=== PATIENT | female | born 1960 | race Caucasian/White ===

== ENCOUNTER 2018-04-26 19:55 | Inpatient (IN) | payer MEDICARE ==
[~2018-04-26] VITALS: Ht 157.5 cm; Wt 41.0 kg
[~2018-04-26 19:55] MED LIST: ALBU4 INH; ALBU90OI; ALBU90OI INH; ASPI81CH PO; AZIT500 PO; CYCL10 PO; FLUSAL2505 INH; GUAI600T33 PO; HYDACE5 PO; HYDCHL25 PO; LEVSOD150 PO; LISI20 PO; OXYC10ER; PRED10 PO; PRED20 PO; RANI150 PO; TRAM50 PO
[2018-04-26 20:30] LABS: BASOPHILS ABSOLUTE AUTO 0.04 K/mm3 (0.00-0.23); BASOPHILS PERCENT AUTO 0 % (0-2); EOSINOPHILS ABSOLUTE AUTO 0.01 K/mm3 (0.00-0.68); EOSINOPHILS PERCENT AUTO 0 % (0-6); Hematocrit 47.6 % (33.0-51.0); Hemoglobin 15.6 g/dL (11.5-16.0); IMMATURE GRAN ABSOLUTE AUTO 0.02 K/mm3 (0.00-0.10); IMMATURE GRAN PERCENT AUTO 0 % (0-1); LYMPHOCYTES ABSOLUTE AUTO 1.06 K/mm3 (0.84-5.20); LYMPHOCYTES PERCENT AUTO 12 % (21-46); MONOCYTES ABSOLUTE AUTO 0.97 K/mm3 (0.16-1.47); MONOCYTES PERCENT AUTO 11 % (4-13); Mean Corpuscular HGB 30.7 pg (26.0-34.0); Mean Corpuscular HGB Conc 32.8 g/dL (31.5-36.5); Mean Corpuscular Volume 94 fL (80-100); Mean Platelet Volume 10.2 fL (9.1-12.4); NEUTROPHILS ABSOLUTE AUTO 6.98 K/mm3 (1.96-9.15); NEUTROPHILS PERCENT AUTO 77 % (41-73); Platelet Count 228 K/mm3 (150-400); RDW Coefficient Variation 12.1 % (11.7-14.2); RDW Standard Deviation 42.3 fL (35.1-46.3); Red Blood Cell Count 5.08 M/mm3 (3.80-5.20); White Blood Cell Count 9.08 K/mm3 (4.00-11.30)
[2018-04-26 20:41] LABS: Alanine Aminotransfer (ALT/SGP 25 U/L (12-78); Albumin/Globulin Ratio 1.1 (0.8-1.8); Alk Phos 76 U/L (50-136); Anion Gap 8 mmol/L (6-16); Aspartate Aminotrans (AST/SGOT 18 U/L (12-37); Bilirubin, Total 0.4 mg/dL (0.1-1.0); Blood Urea Nitrogen 9 mg/dL (8-24); Bun/Creatinine Ratio 13.3 (12.0-20.0); CO2, Blood 31 mmol/L (21-32); Calcium, Blood 9.2 mg/dL (8.5-10.1); Chloride, Blood 99 mmol/L (98-108); Creatinine, Blood 0.68 mg/dL (0.40-1.00); Globulin, Blood 3.8 g/dL (2.2-4.0); Glomerular Filtration Rate >60 (60-); Glucose, Blood 94 mg/dL (70-99); Potassium, Blood 3.7 mmol/L (3.5-5.5); Sodium, Blood 138 mmol/L (136-145); Total Protein, Blood 7.8 g/dL (6.4-8.2); Troponin I <0.015 ng/mL (0.000-0.040)
[2018-04-26 20:45] LABS: Base Excess Venous 8.4 mmol/L; Bicarbonate Venous 29.2 mmol/L (24.0-30.0); PCO2 Venous 53.1 mmHg (38-42); PO2 Venous 29.3 mmHg (38-42)
[2018-04-27 04:19] LABS: BASOPHILS ABSOLUTE AUTO 0.02 K/mm3 (0.00-0.23); BASOPHILS PERCENT AUTO 0 % (0-2); EOSINOPHILS PERCENT AUTO 0 % (0-6); Hematocrit 43.8 % (33.0-51.0); Hemoglobin 14.2 g/dL (11.5-16.0); IMMATURE GRAN ABSOLUTE AUTO 0.01 K/mm3 (0.00-0.10); IMMATURE GRAN PERCENT AUTO 0 % (0-1); LYMPHOCYTES ABSOLUTE AUTO 0.39 K/mm3 (0.84-5.20); LYMPHOCYTES PERCENT AUTO 5 % (21-46); MONOCYTES ABSOLUTE AUTO 0.12 K/mm3 (0.16-1.47); MONOCYTES PERCENT AUTO 2 % (4-13); Mean Corpuscular HGB 30.3 pg (26.0-34.0); Mean Corpuscular HGB Conc 32.4 g/dL (31.5-36.5); Mean Corpuscular Volume 93 fL (80-100); Mean Platelet Volume 10.8 fL (9.1-12.4); NEUTROPHILS ABSOLUTE AUTO 7.04 K/mm3 (1.96-9.15); NEUTROPHILS PERCENT AUTO 93 % (41-73); Platelet Count 237 K/mm3 (150-400); RDW Coefficient Variation 12.1 % (11.7-14.2); Red Blood Cell Count 4.69 M/mm3 (3.80-5.20); White Blood Cell Count 7.58 K/mm3 (4.00-11.30)
[2018-04-27 04:35] LABS: Anion Gap 8 mmol/L (6-16); Blood Urea Nitrogen 11 mg/dL (8-24); Bun/Creatinine Ratio 15.7 (12.0-20.0); CO2, Blood 31 mmol/L (21-32); Calcium, Blood 8.6 mg/dL (8.5-10.1); Chloride, Blood 99 mmol/L (98-108); Glomerular Filtration Rate >60 (60-); Glucose, Blood 139 mg/dL (70-99); Sodium, Blood 138 mmol/L (136-145)
[2018-04-28 03:32] LABS: Hematocrit 43.9 % (33.0-51.0); Hemoglobin 14.3 g/dL (11.5-16.0); Mean Corpuscular HGB 29.6 pg (26.0-34.0); Mean Corpuscular HGB Conc 32.6 g/dL (31.5-36.5); Mean Corpuscular Volume 91 fL (80-100); Mean Platelet Volume 10.3 fL (9.1-12.4); Platelet Count 244 K/mm3 (150-400); RDW Coefficient Variation 11.9 % (11.7-14.2); RDW Standard Deviation 40.1 fL (35.1-46.3); Red Blood Cell Count 4.83 M/mm3 (3.80-5.20); White Blood Cell Count 10.37 K/mm3 (4.00-11.30)
[2018-04-28 04:07] LABS: BAND PERCENT MAN 16 % (0-8); BASOPHILS PERCENT MAN 0 % (0-2); EOSINOPHILS PERCENT MAN 0 % (0-6); LYMPHOCYTES ABSOLUTE MAN 0.31 K/mm3 (0.84-5.20); LYMPHOCYTES PERCENT MAN 3 % (21-46); MONOCYTES PERCENT MAN 0 % (4-13); NEUTROPHILS ABSOLUTE MAN 10.05 K/mm3 (1.96-9.15); SEG NEUTROPHILS PERCENT MAN 81 % (41-73); TOTAL CELLS COUNTED 100
[2018-04-29 04:37] LABS: Mean Corpuscular HGB 30.2 pg (26.0-34.0); Mean Corpuscular HGB Conc 32.6 g/dL (31.5-36.5); Mean Corpuscular Volume 93 fL (80-100); Mean Platelet Volume 10.5 fL (9.1-12.4); Platelet Count 274 K/mm3 (150-400); RDW Coefficient Variation 12.2 % (11.7-14.2); RDW Standard Deviation 42.1 fL (35.1-46.3); Red Blood Cell Count 4.63 M/mm3 (3.80-5.20); White Blood Cell Count 7.83 K/mm3 (4.00-11.30)
[2018-04-29 04:53] LABS: Anion Gap 6 mmol/L (6-16); Blood Urea Nitrogen 29 mg/dL (8-24); Bun/Creatinine Ratio 40.3 (12.0-20.0); CO2, Blood 33 mmol/L (21-32); Calcium, Blood 8.8 mg/dL (8.5-10.1); Chloride, Blood 103 mmol/L (98-108); Creatinine, Blood 0.72 mg/dL (0.40-1.00); Glomerular Filtration Rate >60 (60-); Glucose, Blood 150 mg/dL (70-99); Potassium, Blood 4.2 mmol/L (3.5-5.5); Sodium, Blood 142 mmol/L (136-145)
[2018-04-29 04:58] LABS: BAND PERCENT MAN 11 % (0-8); BASOPHILS PERCENT MAN 0 % (0-2); EOSINOPHILS PERCENT MAN 0 % (0-6); LYMPHOCYTES ABSOLUTE MAN 0.46 K/mm3 (0.84-5.20); LYMPHOCYTES PERCENT MAN 6 % (21-46); MONOCYTES ABSOLUTE MAN 0.15 K/mm3 (0.16-1.47); MONOCYTES PERCENT MAN 2 % (4-13); SEG NEUTROPHILS PERCENT MAN 81 % (41-73); TOTAL CELLS COUNTED 100
[2018-04-29] MEDS ORDERED: ACET325 PO (09:15)
[2018-04-29] MEDS ORDERED: CEFP200 PO (09:15)
[2018-04-29] MEDS ORDERED: GUAI600T33 PO (09:16)
[2018-04-29] MEDS ORDERED: LORA.5 PO (09:17)
[2018-04-29] MEDS ORDERED: ONDA4ODT MM (09:18)
[2018-04-29] MEDS ORDERED: PANT40 PO (09:18)
== END 2018-04-29 12:08 | disposition home or self-care (01) | DRG 192 ==
LOC: ER 19:55 → PCU 19:56
PROVIDERS: Emergency Medicine; Family Medicine; Hospitalist
DX: J44.1 Chronic obstructive pulmonary disease with (acute) exacerbation (principal); I10 Essential (primary) hypertension; R06.03 Acute respiratory distress; E03.9 Hypothyroidism, unspecified; K21.9 Gastro-esophageal reflux disease without esophagitis; F41.9 Anxiety disorder, unspecified; Z87.891 Personal history of nicotine dependence; Z79.899 Other long term (current) drug therapy
CPT/HCPCS: 36415; 71045; 71046; 80048; 80053; 82803; 83880; 84443; 84484; 85025; 93005; 93010; 94640; 94644; 94760; 99285-25; J0456; J0696; J2405; J2920; J2930; J3475; J7030; J7050

== ENCOUNTER 2018-05-04 08:48 | Inpatient (IN) | payer MEDICARE ==
[~2018-05-04] VITALS: Ht 157.5 cm; Wt 40.0 kg
[~2018-05-04 08:48] MED LIST changes: +ACET325 PO; +CEFP200 PO; +LORA.5 PO; +ONDA4ODT MM; +PANT40 PO
[2018-05-04 09:26] LABS: BASOPHILS ABSOLUTE AUTO 0.03 K/mm3 (0.00-0.23); BASOPHILS PERCENT AUTO 0 % (0-2); EOSINOPHILS ABSOLUTE AUTO 0.15 K/mm3 (0.00-0.68); EOSINOPHILS PERCENT AUTO 1 % (0-6); Hematocrit 50.2 % (33.0-51.0); Hemoglobin 16.4 g/dL (11.5-16.0); IMMATURE GRAN ABSOLUTE AUTO 0.15 K/mm3 (0.00-0.10); IMMATURE GRAN PERCENT AUTO 1 % (0-1); LYMPHOCYTES ABSOLUTE AUTO 2.51 K/mm3 (0.84-5.20); LYMPHOCYTES PERCENT AUTO 16 % (21-46); MONOCYTES ABSOLUTE AUTO 0.73 K/mm3 (0.16-1.47); MONOCYTES PERCENT AUTO 5 % (4-13); Mean Corpuscular HGB Conc 32.7 g/dL (31.5-36.5); Mean Corpuscular Volume 92 fL (80-100); Mean Platelet Volume 10.1 fL (9.1-12.4); NEUTROPHILS ABSOLUTE AUTO 12.01 K/mm3 (1.96-9.15); NEUTROPHILS PERCENT AUTO 77 % (41-73); Platelet Count 413 K/mm3 (150-400); RDW Coefficient Variation 12.1 % (11.7-14.2); RDW Standard Deviation 41.5 fL (35.1-46.3); Red Blood Cell Count 5.47 M/mm3 (3.80-5.20); White Blood Cell Count 15.58 K/mm3 (4.00-11.30)
[2018-05-04 09:42] LABS: Anion Gap 7 mmol/L (6-16); Blood Urea Nitrogen 19 mg/dL (8-24); CO2, Blood 31 mmol/L (21-32); Calcium, Blood 8.7 mg/dL (8.5-10.1); Chloride, Blood 102 mmol/L (98-108); Creatinine, Blood 0.73 mg/dL (0.40-1.00); Glomerular Filtration Rate >60 (60-); Glucose, Blood 95 mg/dL (70-99); Potassium, Blood 3.7 mmol/L (3.5-5.5); Sodium, Blood 140 mmol/L (136-145)
[2018-05-05 04:54] LABS: BASOPHILS ABSOLUTE AUTO 0.01 K/mm3 (0.00-0.23); BASOPHILS PERCENT AUTO 0 % (0-2); EOSINOPHILS PERCENT AUTO 0 % (0-6); Hematocrit 44.8 % (33.0-51.0); Hemoglobin 14.5 g/dL (11.5-16.0); IMMATURE GRAN ABSOLUTE AUTO 0.09 K/mm3 (0.00-0.10); IMMATURE GRAN PERCENT AUTO 1 % (0-1); LYMPHOCYTES ABSOLUTE AUTO 0.74 K/mm3 (0.84-5.20); LYMPHOCYTES PERCENT AUTO 9 % (21-46); MONOCYTES PERCENT AUTO 1 % (4-13); Mean Corpuscular HGB 29.5 pg (26.0-34.0); Mean Corpuscular HGB Conc 32.4 g/dL (31.5-36.5); Mean Corpuscular Volume 91 fL (80-100); Mean Platelet Volume 10.3 fL (9.1-12.4); NEUTROPHILS ABSOLUTE AUTO 7.69 K/mm3 (1.96-9.15); NEUTROPHILS PERCENT AUTO 89 % (41-73); Platelet Count 387 K/mm3 (150-400); RDW Coefficient Variation 12.1 % (11.7-14.2); RDW Standard Deviation 40.8 fL (35.1-46.3); Red Blood Cell Count 4.91 M/mm3 (3.80-5.20); White Blood Cell Count 8.63 K/mm3 (4.00-11.30)
[2018-05-05 05:18] LABS: Anion Gap 7 mmol/L (6-16); Blood Urea Nitrogen 25 mg/dL (8-24); Bun/Creatinine Ratio 36.3 (12.0-20.0); CO2, Blood 30 mmol/L (21-32); Calcium, Blood 8.5 mg/dL (8.5-10.1); Chloride, Blood 107 mmol/L (98-108); Creatinine, Blood 0.69 mg/dL (0.40-1.00); Glomerular Filtration Rate >60 (60-); Glucose, Blood 120 mg/dL (70-99); Potassium, Blood 4.5 mmol/L (3.5-5.5); Sodium, Blood 144 mmol/L (136-145)
[2018-05-06 05:26] LABS: BASOPHILS ABSOLUTE AUTO 0.03 K/mm3 (0.00-0.23); BASOPHILS PERCENT AUTO 0 % (0-2); EOSINOPHILS PERCENT AUTO 0 % (0-6); Hematocrit 40.5 % (33.0-51.0); Hemoglobin 13.5 g/dL (11.5-16.0); IMMATURE GRAN ABSOLUTE AUTO 0.24 K/mm3 (0.00-0.10); IMMATURE GRAN PERCENT AUTO 1 % (0-1); LYMPHOCYTES ABSOLUTE AUTO 0.78 K/mm3 (0.84-5.20); LYMPHOCYTES PERCENT AUTO 4 % (21-46); MONOCYTES ABSOLUTE AUTO 0.36 K/mm3 (0.16-1.47); MONOCYTES PERCENT AUTO 2 % (4-13); Mean Corpuscular HGB 30.3 pg (26.0-34.0); Mean Corpuscular HGB Conc 33.3 g/dL (31.5-36.5); Mean Corpuscular Volume 91 fL (80-100); Mean Platelet Volume 10.4 fL (9.1-12.4); NEUTROPHILS ABSOLUTE AUTO 17.72 K/mm3 (1.96-9.15); NEUTROPHILS PERCENT AUTO 93 % (41-73); Platelet Count 337 K/mm3 (150-400); RDW Coefficient Variation 12.1 % (11.7-14.2); RDW Standard Deviation 40.6 fL (35.1-46.3); Red Blood Cell Count 4.45 M/mm3 (3.80-5.20); White Blood Cell Count 19.13 K/mm3 (4.00-11.30)
[2018-05-07] MEDS ORDERED: DOXY100 PO (10:27)
[2018-05-07] MEDS ORDERED: ALBU3IS INH (10:28)
[2018-05-07] MEDS ORDERED: DULERA 200 MCG/13 GM INH (10:29)
[2018-05-07] MEDS ORDERED: PRED20 PO (10:31)
== END 2018-05-07 11:01 | disposition home or self-care (01) | DRG 189 ==
LOC: ER 08:48 → MEDS 11:38
PROVIDERS: Emergency Medicine; Family Medicine
DX: J96.21 Acute and chronic respiratory failure with hypoxia (principal); J44.1 Chronic obstructive pulmonary disease with (acute) exacerbation; F41.9 Anxiety disorder, unspecified; E03.9 Hypothyroidism, unspecified; I10 Essential (primary) hypertension; K21.9 Gastro-esophageal reflux disease without esophagitis; F17.210 Nicotine dependence, cigarettes, uncomplicated
CPT/HCPCS: 36415; 71046; 80048; 85025; 85379; 93005; 93010; 94640; 94644; 94760; 94761; 96374; 99285-25; J0456; J0696; J2060; J2405; J2920; J7030; J7050

== ENCOUNTER 2019-02-01 12:44 | Emergency (ER) | payer MEDICARE ==
[~2019-02-01] VITALS: Ht 157.5 cm; Wt 48.1 kg
[~2019-02-01 12:44] MED LIST changes: +ALBU3IS INH; +DOXY100 PO; +DULERA 200 MCG/13 GM INH
[2019-02-01 13:28] LABS: BASOPHILS ABSOLUTE AUTO 0.03 K/mm3 (0.00-0.23); BASOPHILS PERCENT AUTO 0 % (0-2); EOSINOPHILS ABSOLUTE AUTO 0.28 K/mm3 (0.00-0.68); EOSINOPHILS PERCENT AUTO 2 % (0-6); Hematocrit 47.6 % (33.0-51.0); IMMATURE GRAN ABSOLUTE AUTO 0.08 K/mm3 (0.00-0.10); IMMATURE GRAN PERCENT AUTO 1 % (0-1); LYMPHOCYTES PERCENT AUTO 21 % (21-46); MONOCYTES ABSOLUTE AUTO 0.75 K/mm3 (0.16-1.47); MONOCYTES PERCENT AUTO 7 % (4-13); Mean Corpuscular HGB Conc 31.5 g/dL (31.5-36.5); Mean Corpuscular Volume 95 fL (80-100); NEUTROPHILS ABSOLUTE AUTO 8.07 K/mm3 (1.96-9.15); NEUTROPHILS PERCENT AUTO 69 % (41-73); RDW Coefficient Variation 12.8 % (11.7-14.2); RDW Standard Deviation 45.1 fL (35.1-46.3); White Blood Cell Count 11.61 K/mm3 (4.00-11.30)
[2019-02-01 14:05] LABS: Platelet Count 211 K/mm3 (150-400)
[2019-02-01 14:36] LABS: Troponin I 0.032 ng/mL (0.000-0.040)
[2019-02-01 14:43] LABS: Alanine Aminotransfer (ALT/SGP 54 U/L (12-78); Albumin, Blood 3.5 g/dL (3.4-5.0); Albumin/Globulin Ratio 1.2 (0.8-1.8); Alk Phos 82 U/L (50-136); Anion Gap 4 mmol/L (6-16); Aspartate Aminotrans (AST/SGOT 29 U/L (12-37); Bilirubin, Total 0.4 mg/dL (0.1-1.0); Blood Urea Nitrogen 14 mg/dL (8-24); Bun/Creatinine Ratio 16.7 (12.0-20.0); CO2, Blood 34 mmol/L (21-32); Calcium, Blood 8.7 mg/dL (8.5-10.1); Chloride, Blood 104 mmol/L (98-108); Creatinine, Blood 0.84 mg/dL (0.40-1.00); Globulin, Blood 2.8 g/dL (2.2-4.0); Glomerular Filtration Rate >60 (60-); Glucose, Blood 88 mg/dL (70-99); Potassium, Blood 3.6 mmol/L (3.5-5.5); Sodium, Blood 142 mmol/L (136-145); Total Protein, Blood 6.3 g/dL (6.4-8.2)
[2019-02-01 16:04] LABS: Source, Urine Clean Catch
[2019-02-01 16:07] LABS: Appearance, Urine Clear (Clear); Bilirubin, Urine Neg (Neg); Blood, Urine 2+ (Neg); Color, Urine Yellow (P-Yellow); Glucose Qualitative, Urine Neg (Neg); Ketones, Urine Neg (Neg); Leukocyte Esterase, Urine Neg (Neg); Nitrite, Urine Neg (Neg); Protein, Urine Neg (Neg); Specific Gravity, Urine 1.015 (1.003-1.022); Urobilinogen, Urine NORM (Normal)
[2019-02-01 16:15] LABS: White Blood Cells, Urine 0-2 /hpf (0-5)
[2019-02-01 16:16] LABS: Amorphous Light (0-Heavy); Bacteria Few /hpf; Squamous Epithelial Cells Few /hpf (Few); Transitional Epithelial Cells Few /hpf (0-Rare)
== END 2019-02-01 17:19 | disposition home or self-care (01) ==
LOC: ER 12:44
PROVIDERS: Emergency Medicine
DX: R52 Pain, unspecified (principal); J44.9 Chronic obstructive pulmonary disease, unspecified; Z86.718 Personal history of other venous thrombosis and embolism; Z79.52 Long term (current) use of systemic steroids; Z79.899 Other long term (current) drug therapy; Z87.891 Personal history of nicotine dependence
CPT/HCPCS: 36415; 71046; 80053; 81001; 84484; 85025; 93005; 93010; 99284-25; J7030

== ENCOUNTER 2021-05-06 14:32 | Inpatient (IN) | payer MEDICARE ==
[~2021-05-06] VITALS: Ht 157.5 cm; Wt 38.7 kg
[~2021-05-06 14:32] MED LIST changes: +ALBU90OI61 INH; +ATOR40TA PO; +AZIT250 PO; +LEVSOD50 PO; +METO25 PO; +NAPR500 PO; +SYNTHROID25 MCG PO; +XARELTO20 MG PO; +ZESTRIL40 MG PO
[2021-05-06 15:06] LABS: BASOPHILS ABSOLUTE AUTO 0.02 K/mm3 (0.00-0.23); BASOPHILS PERCENT AUTO 0 % (0-2); EOSINOPHILS PERCENT AUTO 0 % (0-6); Hematocrit 39.8 % (33.0-51.0); Hemoglobin 12.8 g/dL (11.5-16.0); IMMATURE GRAN ABSOLUTE AUTO 0.06 K/mm3 (0.00-0.10); IMMATURE GRAN PERCENT AUTO 0 % (0-1); LYMPHOCYTES ABSOLUTE AUTO 0.28 K/mm3 (0.84-5.20); LYMPHOCYTES PERCENT AUTO 2 % (21-46); MONOCYTES ABSOLUTE AUTO 0.18 K/mm3 (0.16-1.47); MONOCYTES PERCENT AUTO 1 % (4-13); Mean Corpuscular HGB Conc 32.2 g/dL (31.5-36.5); Mean Corpuscular Volume 90 fL (80-100); Mean Platelet Volume 10.9 fL (9.1-12.4); NEUTROPHILS ABSOLUTE AUTO 15.33 K/mm3 (1.96-9.15); NEUTROPHILS PERCENT AUTO 97 % (41-73); Platelet Count 212 K/mm3 (150-400); RDW Coefficient Variation 14.2 % (11.7-14.2); RDW Standard Deviation 46.9 fL (35.1-46.3); Red Blood Cell Count 4.41 M/mm3 (3.80-5.20); White Blood Cell Count 15.87 K/mm3 (4.00-11.30)
[2021-05-06] MEDS ORDERED: OXYC10TA19 PO (15:25)
[2021-05-06 15:32] LABS: Alanine Aminotransfer (ALT/SGP 32 U/L (12-78); Albumin, Blood 2.5 g/dL (3.4-5.0); Albumin/Globulin Ratio 0.6 (0.8-1.8); Alk Phos 147 U/L (50-136); Anion Gap 9 mmol/L (6-16); Aspartate Aminotrans (AST/SGOT 27 U/L (12-37); Bilirubin, Total 0.4 mg/dL (0.1-1.0); Blood Urea Nitrogen 18 mg/dL (8-24); Bun/Creatinine Ratio 28.6 (12.0-20.0); CO2, Blood 28 mmol/L (21-32); Calcium, Blood 8.9 mg/dL (8.5-10.1); Chloride, Blood 106 mmol/L (98-108); Creatinine, Blood 0.63 mg/dL (0.40-1.00); Globulin, Blood 3.9 g/dL (2.2-4.0); Glomerular Filtration Rate >60 (60-); Glucose, Blood 157 mg/dL (70-99); Potassium, Blood 2.9 mmol/L (3.5-5.5); Sodium, Blood 143 mmol/L (136-145); Total Protein, Blood 6.4 g/dL (6.4-8.2); Troponin I 0.034 ng/mL (0.000-0.040)
[2021-05-06] MEDS ORDERED: ATOR40TA PO (21:39)
[2021-05-06] MEDS ORDERED: COMBIVENT RESPIM4 G1 INH (21:39)
[2021-05-06] MEDS ORDERED: PRED5 PO (21:39)
[2021-05-06] MEDS ORDERED: ZESTRIL40 M1 PO (21:39)
[2021-05-06] MEDS ORDERED: AMLODIPINE BES2.5 MG PO (21:39)
[2021-05-06] MEDS ORDERED: PANTOPRAZOLE SO40 M2 PO (21:40)
[2021-05-06] MEDS ORDERED: METOPROLOL SUCC25 MG PO (21:40)
[2021-05-06] MEDS ORDERED: LEVSOD25 PO (21:47)
--- NOTE | 2021-05-07 02:12 | NUR ---
PT ADMITTED FROM EMERGENCY DEPARTMENT, SHE STATES FIRST THAT HER HIP HURTS, THAT IT IS A WEEK AND 3 DAYS OLD. THEN UPON FURTHER QUESTIONING, SHE SAYS, "IT'S ABOUT A MONTH AGO". STATES THE HIP WAS DONE IN [place], SHE WAS DISCHARGED TO A CARE FACILITY THAT SHE DIDN'T LIKE, STAYED THERE 2 WEEKS, THEN STAYED IN [facility], SHE SAID IT GOT TOO HOT AND SO SHE MOVED HERE, SHE LIVES WITH "ANOTHER GRANDMA". VERY VAGUE ABOUT ANY DETAILS. SHE STATES SHE IS SHORT OF BREATH, THAT EVERYTHING HURTS, THAT SHE WANTS ALL OF IT TO STOP. NS TKO STARTED, AND K+ RIDER SLOWED DOWN TO PATIENT SATISFACTION. HER LUNGS ARE CLEAR, DIMINISHED THROUGHOUT. VSS, ASKING FOR ATIVAN, ASKING FOR A DONUT. WAS ABLE TO GET HER SOME ROXICODONE AND SHE HAS SETTLED DOWN. URESIL TO RIGHT ANTERIOR CHEST, FLUCTUATING WITH BREATHING, TO WATER SEAL. 22G TO RIGHT HAND AND ONE TO LEFT AC. PULSES X 4, ECCHYMOTIC AROUND NECK AND ARMS.
[2021-05-07 02:23] LABS: SARS-Cov-2 (COVID-19) PCR, MMC NEGATIVE (NEGATIVE)
--- NOTE | 2021-05-07 06:14 | NUR ---
ONCE ARNALDO RECEIVED THE PAIN MEDICATIONS SHE SLEPT WELL. HER BREATHING IS GOOD, AUDIBLE WHEEZE NOTED AT THE BEDSIDE, K+ RIDER'S IN WITHOUT INCIDENT. BOTH SITES FLUSHED. PT STATES THIS AM THAT SHE IS "BREATHING BETTER". AT THE SITE OF THE URESIL TISSUE IS SWOLLEN AND SOFT, NON TENDER TO PALPATION, NO CREPITUS NOTED. CONTINUES TO WATER SEAL. SATS REMAIN >96%.
--- NOTE | 2021-05-07 07:30 | NUR ---
INITIAL ASSESSMENT: PT IS AWAKE AND RESTING COMFORTABLY IN BED. PT IS ALERT AND ORIENTED X3. SHE KEEPS REASSURING HERSELF THAT SHE IS IN THE HOSPITAL AND I AM REMINDING HER SHE IS IN THE ICU. PT REPORTS 8/10 PAIN IN HER RIGHT HIP, SHE HAD A RECENT FRACTURE WITH PINNING. OXYCODONE GIVEN FOR PAIN. LS DIM WITH SOME WHEEZING NOTED IN THE RIGHT LOWER LOBE. PT HAS A URESIL TO HER RIGHT UPPER CHEST HOOKED TO WATER SEAL. PT HAS CREPITUS AROUND THE INSERTION SITE OF THE URESIL, IT TRAVELS UP TO THE COLLAR BONE AND CLOSE TO THE STERNUM. PT REPORTS SHE IS MILDLY SOB, BIOX WNL ON RA. BT+. PPP. VSS. PT HAS SCATTERED BRUISING ON UPPER AND LOWER EXTREMITIES. PT DENIES OTHER NEEDS AT THIS TIME. CALL LIGHT IN REACH. WILL CONTINUE TO MONITOR.
--- NOTE | 2021-05-07 10:36 | NUR ---
DR. ROBLES WAS HERE TO SEE THE PATIENT, SHE HAD PULMONOLOGY EVALULATE THE PATIENTS CHART TO ASSESS IF WE CAN TAKE THE CHEST TUBE OUT AND REPLACE IT. THE BEST OPTION AT THIS POINT IS TO TRANSFER THE PATIENT TO A HIGHER LEVEL OF CARE BECAUSE OF WHERE THE URESIL IS PLACED. KHOI BULL RN TO CALL TRANSFER CENTER FOR BED AVAILABILITY.
--- NOTE | 2021-05-07 11:41 | NUR ---
PATIENT IS OOB TO CHAIR. AMBULATES SBA WITH FWW TO THE CHIAR. BED BATH GIVEN AND LINEN CHANGED. VSS. PT DENIES OTHER NEEDS AT THIS TIME. CALL LIGHT IN REACH. WILL CONTINUE TO MONITOR.
--- NOTE | 2021-05-07 15:30 | NUR ---
DR. ROBLES HAS CALLED MULTIPLE FACILITIES TO FIND A FACILITY WITH A CARDIOTHORACIC SURGEON. THE ONLY FACILITY THAT HAS BEDS AVAILABLE AND A PHYSICIAN ABLE TO ACCEPT IS [facility]. I DISCUSSED THIS WITH THE PATIENT. THE PATIENT HAD SOME QUESTIONS ABOUT THE LOCATION OF THE FACILITY, WE DISCUSSED THIS FACILITY IS LOCATED IN [place]. THE PATIENT STATES SHE TALKED WITH SEVERAL OF HER FAMILY MEMBERS, THEY HAVE HAD "BAD EXPERIENCES" AT THIS FACILITY-PER THE PATIENT. I DID TALK WITH THE PATIENT ABOUT THE RISKS OF HER STAYING HERE AND NOT ACCEPTING A BED AT A HIGHER LEVEL OF CARE THAT CAN REMOVE HER CURRENT CHEST TUBE AND HAVE SURGICAL BACK UP SHOULD SHE NEED IT AND WE DON'T HAVE THIS RESOURCE AT THIS FACILITY. I DISCUSSED THE RISK OF HER STAYING HERE LONGER.
--- NOTE | 2021-05-07 16:00 | NUR ---
DR. ROBLES CAME DOWN TO TALK WITH THE PATIENT ABOUT THE SEVERITY OF HER SITUTATION AND THE IMPORTANCE OF BEING TRANSFERRED TO A FACILITY THAT HAS THE CAPABILITY OF CARING FOR HER SHOULD SHE HAVE FURTHER COMPLICATIONS AND A FACILITY THAT CAN REMOVE HER CURRENT CHEST TUBE. THE PATIENT WANTED TO MAKE PHONE CALLS TO FAMILY MEMBERS TO DISCUSS HER TRANSFER STATUS WITH FAMILY MEMBERS.
--- NOTE | 2021-05-07 18:36 | NUR ---
PATIENT WAS ASSISTED TO MOVE BACK SUPINE FROM HIS PRONING POSITION. ONCE PATIENT WAS BACK SUPINE, HIS SATS HAVE NOT FULLLY RECOVERED HE IS SITTING 85-91%. RT SWITCHED OUT THE ARIVO. PT IS CURRENTLY ON AIRVO 50L FIO2 FLUCUATING BETWEEN 70-100%. THE PATIENT WILL REMAIN IN ICU 1 INSTEAD OF TRANSFERRING. RT AT BEDSIDE, SWITCHING FROM THE AIRVO TO THE V60 HEATED HIGH FLOW.
--- NOTE | 2021-05-07 18:54 | NUR ---
PATIENT HAS BEEN STABLE THROUGH OUT THE SHIFT. DR. ROBLES MADE MULTIPLE PHONE CALLS TO OUTSIDE FACILITIES TO FIND A FACILITY THAT HAS OPEN BEDS AND IS WILLING TO ACCEPT THE PATIENT. NO BED ASSIGNMENT YET. WILL CONTINUE TO MONITOR. BLOOD PRESSURE IS A LITTLE HIGH THIS EVENING, PRN HYDRALAZINE GIVEN. PT RESTING COMFORTABLY AT THIS TIME. WILL REPORT TO ONCOMING RN.
--- NOTE | 2021-05-08 02:39 | NUR ---
NOTED INCREASE CREPITUS RIGHT SIDE UPPER CHEST TO MIDSTERNAL, CALLED AND N.O. PORTABLE CHEST XRAY OBTAIN.
--- NOTE | 2021-05-08 05:58 | NUR ---
PATIENT WAS ANXIOUS THROUGHOUT THE EVENING, SATURATIONS AT 98-100%, HR 100-118, SEE PREVIOUS NOTE, ALERT AND ORIENTATED C/O INCREASED PAIN IN CHEST AND R/HIP RECEIVED ROXICODONE WITH GOOD RESULTS, CAME BACK TO REASSESS PATIENT IS SLEEPING COMFORTABLY.
--- NOTE | 2021-05-08 07:28 | NUR ---
Patient is resting with eyes closed, easily awakens with verbal stimuli. When asked about pain patient shakes her head and says, "It doesn't matter I am just trying to sleep through it until we get a bed somewhere else." Oxygen 100% on 3.5 l, titrated down to 2l via nc, will reassess. Patient denies needs at this time, call light in reach. Will continue to monitor.
[2021-05-08 08:38] LABS: BASOPHILS ABSOLUTE AUTO 0.02 K/mm3 (0.00-0.23); BASOPHILS PERCENT AUTO 0 % (0-2); EOSINOPHILS PERCENT AUTO 0 % (0-6); Hematocrit 34.1 % (33.0-51.0); Hemoglobin 10.6 g/dL (11.5-16.0); IMMATURE GRAN ABSOLUTE AUTO 0.08 K/mm3 (0.00-0.10); IMMATURE GRAN PERCENT AUTO 1 % (0-1); LYMPHOCYTES PERCENT AUTO 3 % (21-46); MONOCYTES ABSOLUTE AUTO 0.21 K/mm3 (0.16-1.47); MONOCYTES PERCENT AUTO 2 % (4-13); Mean Corpuscular HGB 29.3 pg (26.0-34.0); Mean Corpuscular HGB Conc 31.1 g/dL (31.5-36.5); Mean Corpuscular Volume 94 fL (80-100); Mean Platelet Volume 10.5 fL (9.1-12.4); NEUTROPHILS ABSOLUTE AUTO 13.09 K/mm3 (1.96-9.15); NEUTROPHILS PERCENT AUTO 95 % (41-73); Platelet Count 229 K/mm3 (150-400); RDW Coefficient Variation 14.2 % (11.7-14.2); RDW Standard Deviation 49.6 fL (35.1-46.3); Red Blood Cell Count 3.62 M/mm3 (3.80-5.20)
[2021-05-08 09:02] LABS: Alanine Aminotransfer (ALT/SGP 34 U/L (12-78); Albumin, Blood 2.7 g/dL (3.4-5.0); Albumin/Globulin Ratio 0.8 (0.8-1.8); Alk Phos 140 U/L (50-136); Anion Gap 1 mmol/L (6-16); Aspartate Aminotrans (AST/SGOT 12 U/L (12-37); Bilirubin, Total 0.3 mg/dL (0.1-1.0); Blood Urea Nitrogen 11 mg/dL (8-24); Bun/Creatinine Ratio 19.8 (12.0-20.0); CO2, Blood 35 mmol/L (21-32); Calcium, Blood 8.9 mg/dL (8.5-10.1); Chloride, Blood 106 mmol/L (98-108); Creatinine, Blood 0.56 mg/dL (0.40-1.00); Globulin, Blood 3.4 g/dL (2.2-4.0); Glomerular Filtration Rate >60 (60-); Glucose, Blood 103 mg/dL (70-99); Magnesium, Blood 2.2 mg/dL (1.6-2.4); Potassium, Blood 4.1 mmol/L (3.5-5.5); Sodium, Blood 142 mmol/L (136-145); Total Protein, Blood 6.1 g/dL (6.4-8.2)
[2021-05-08 09:04] LABS: Base Excess Venous 10.3 mmol/L; Bicarbonate Venous 30.5 mmol/L (24.0-30.0); PCO2 Venous 63.3 mmHg (38-42); PO2 Venous 22.1 mmHg (38-42); pH Blood Venous 7.36 (7.34-7.37)
--- NOTE | 2021-05-08 09:47 | NUR ---
ONCE PATIENT WAS MORE AWAKE SHE IS C/O ANXIETY AND SOB. DHEERAJ RT AT BEDSIDE, SET UP ARIVO TO HELP PT WITH SOB SETTINGS 40L 30% FIO2, OXYGEN SATURATIONS 100%, PT STATES SOME RELIEF OF SOB. CALL TO DR. ROBLES, SEE NEW ORDERS. CRITAL RESULT FROM [facility] CALLED TO DR. ROBLES, NO NEW ORDERS. PT RECIEVED AM MEDICATIONS AND ATRAX FOR ANXIETY, SHE IS RESTING COMFORTABLY AT THIS TIME. CALL LIGHT IN REACH, WILL CONTINUE TO MONITOR.
--- NOTE | 2021-05-08 17:46 | NUR ---
Patient has done well t/o the shift. Chest X-Ray today shows improvement on pneumo. Crepitus has stayed the same. Patient has been anxious t/o the shift requiring atarax Q6. Dr Cardenas and myself have called around to other facilities to find her a bed, still no availability. Patient required AIRVO this am due to SOB, respiratory therapy was able to put her back on her oxygen 2l via nc this afternoon, oxygen saturations remain in the high 90s. No acute changes this shift. Will report to oncoming RN.
--- NOTE | 2021-05-08 19:15 | NUR ---
REPORT RECEIVED AT BEDSIDE PT WITH CHEST TUBE IN PLACE-POSITIVE TIDALING-AND BUBBLING NOTED WITH BREATHING. PT HAS ON GOING CREPITUS RT UPPER CHEST AREA-DAYSHIFT RN IN ROOM ON ASSESSMENT-NOTES NO CHANGE. PT HAS NOTED ANXIETY-MEDS PER MAR. CONTINUE ASSESSMENTS AND CARE.
--- NOTE | 2021-05-08 20:48 | NUR ---
ASSESS CHEST TUBE TO WATER SEAL. WHEN PT RESTING CHEST TUBE WITH POSITIVE TIDALING NO BUBBLING. CREPITAS REMAINS UNCHANGES.
--- NOTE | 2021-05-09 00:08 | NUR ---
ASSESS PT RR 25-30, TIGHT EXP. WHEEZES AND DECREASED T/O. CALLED RT FOR BREATHING RX. CHEST TUBE IN PLACE-WATER SEAL, POSITIVE TIDALING AND BUBBLING NOTED. CREPITAS UNCHANGED IN UPPER RIGHT CHEST AREA. 1212 RT IN ROOM. WILL CONTINUE ASSESSMENT AND CARE.
--- NOTE | 2021-05-09 00:48 | NUR ---
NOTIFIED-DR. LINK PT WITH INCREASING SOB, BS DECREASED WITH TIGHT EXP WHEEZES. RT RX DONE. PT ANXIOUS. LEAK CHEST TUBE LEAK REPORTED. MD ORDERED CXR.
--- NOTE | 2021-05-09 01:03 | NUR ---
CXR DONE-NOTIFIED DR. LINK NOW.
--- NOTE | 2021-05-09 01:27 | NUR ---
0122-MD TO BEDSIDE-ASSESS PT. MD WILL CALL OTHER FACILITIES TO TRANSFER PT. MD STATES TO CALL HIM BACK IF 02 SATS BEGIN TO DECREASE.
--- NOTE | 2021-05-09 01:31 | NUR ---
REPORTS BACK-NO BEDS AVAILABLE AT OTHER HOSPITALS AT THIS TIME.
--- NOTE | 2021-05-09 09:39 | NUR ---
Care assumed 0700 Pt A/O to location, event, date, and following directions. Pt has water seal chest tube in place, positive tidaling and bubbling noted with breathing. Crepitus to RT upper chest, same per nightshift RN. Pt states feeling anxious, treated per emar. Denies SOB at this time. States having chest pain and hip pain. Chest pain started after chest tube placement per patient. Sinus tach HR 110's and RR 20's. Will continue to monitor.
--- NOTE | 2021-05-09 09:43 | NUR ---
Hypoglycemia - 54 Patient states she has not been eating since being admitted. Provided juice and breakfast. Pt has apple and orange juice with muffin. POC glucose rechecked - 78. Pt continues to eat. Will continue to monitor.
--- NOTE | 2021-05-09 18:35 | NUR ---
Shift Summary - Patient surgical floor status with tele Pt A/O X 4, able to follow directions. Is anxious frequently and has hip pain ( 8/10), treated per emar. Chest tube remains in place, no changes. Secured with opsite on chest and taped to floor to prevent tipping over. VSS. NSR. Will report to oncoming shift. Dr. Cardenas in to see patient earlier and would like to change to surgical floor status. Pts CBG to be checked Q4 hr per shift due to pt having hypoglycemia.
--- NOTE | 2021-05-09 19:57 | NUR ---
CARE ASSUMED- PT RESTING ON N/C 3.5 L, RT NEB RX IN PROGRESS. BS: DECREASED RT SIDE WITH FINE CRACKLES UPPER LOBE. POSITIVE CREPITAS RT UPPER CHEST. CHEST TUBE TO WATER SEAL-TIDALING NOTED-POSITIVE BUBBLES WITH PT AWAKE AND COUGH. IV SL AT THIS TIME. CONTINUE ASSESSMENT AND CARE.
--- NOTE | 2021-05-09 20:38 | NUR ---
pt transfering to room 216-call report to rn
--- NOTE | 2021-05-09 20:54 | NUR ---
REPORT GIVEN- PT PREP FOR TRANSPORT AND TRANSPORT TO ROOM 216.
--- NOTE | 2021-05-10 00:15 | NUR ---
ZANA FROM [facility] TRANSFER LINE CALLED INQUIRING IF PT IS STILL IN NEED OF A BED AT AN ACUTE CARE FACILITY WELL PT CURRENT STATUS (SURGICAL NOT ICU). NO BEDS AVAILABLE AT THIS TIME. PT REMAINS ON TRANSFER LIST.
[2021-05-10 05:36] LABS: BASOPHILS ABSOLUTE AUTO 0.04 K/mm3 (0.00-0.23); BASOPHILS PERCENT AUTO 0 % (0-2); EOSINOPHILS ABSOLUTE AUTO 0.08 K/mm3 (0.00-0.68); EOSINOPHILS PERCENT AUTO 1 % (0-6); Hematocrit 36.3 % (33.0-51.0); Hemoglobin 11.3 g/dL (11.5-16.0); IMMATURE GRAN ABSOLUTE AUTO 0.14 K/mm3 (0.00-0.10); IMMATURE GRAN PERCENT AUTO 1 % (0-1); LYMPHOCYTES ABSOLUTE AUTO 1.17 K/mm3 (0.84-5.20); LYMPHOCYTES PERCENT AUTO 10 % (21-46); MONOCYTES ABSOLUTE AUTO 0.44 K/mm3 (0.16-1.47); MONOCYTES PERCENT AUTO 4 % (4-13); Mean Corpuscular HGB 28.9 pg (26.0-34.0); Mean Corpuscular HGB Conc 31.1 g/dL (31.5-36.5); Mean Corpuscular Volume 93 fL (80-100); Mean Platelet Volume 10.8 fL (9.1-12.4); NEUTROPHILS ABSOLUTE AUTO 9.66 K/mm3 (1.96-9.15); NEUTROPHILS PERCENT AUTO 84 % (41-73); Platelet Count 222 K/mm3 (150-400); RDW Coefficient Variation 14.7 % (11.7-14.2); RDW Standard Deviation 50.1 fL (35.1-46.3); Red Blood Cell Count 3.91 M/mm3 (3.80-5.20); White Blood Cell Count 11.53 K/mm3 (4.00-11.30)
[2021-05-10 06:03] LABS: Alanine Aminotransfer (ALT/SGP 26 U/L (12-78); Albumin, Blood 2.1 g/dL (3.4-5.0); Albumin/Globulin Ratio 0.6 (0.8-1.8); Alk Phos 141 U/L (50-136); Anion Gap 2 mmol/L (6-16); Aspartate Aminotrans (AST/SGOT 15 U/L (12-37); Bilirubin, Total 0.4 mg/dL (0.1-1.0); Blood Urea Nitrogen 16 mg/dL (8-24); Bun/Creatinine Ratio 29.3 (12.0-20.0); CO2, Blood 33 mmol/L (21-32); Calcium, Blood 8.3 mg/dL (8.5-10.1); Chloride, Blood 101 mmol/L (98-108); Creatinine, Blood 0.55 mg/dL (0.40-1.00); Globulin, Blood 3.6 g/dL (2.2-4.0); Glomerular Filtration Rate >60 (60-); Glucose, Blood 95 mg/dL (70-99); Potassium, Blood 3.7 mmol/L (3.5-5.5); Sodium, Blood 136 mmol/L (136-145); Total Protein, Blood 5.7 g/dL (6.4-8.2)
--- NOTE | 2021-05-10 06:48 | NUR ---
SUMMARY TRANSFERRED FROM PCU THIS SHIFT.PT HAS PNEUMO FROM ATTEMPTED CL PLACEMENT AND R ACW CHEST TUBE WHICH IS NOTED PLACED IN LUNG PARENCHYMA.PT HAS BEEN WAITING TRANSFER TO HIGHER LEVEL OF CARE FOR SAFE REMOVAL OF CHEST TUBE. HOWEVER,SO FAR NO BEDS AVAILABEL FOR TRANSFER. PT THIN.APPEARS IN POOR NUTRITION,HAS PRESSURE ULCER NOTED TO COCCYX.MEPILEX PLACED.PT HAS Q4 HR CBG DUE TO HYPOGLYCEMIC EVENTS.HOWEVER,PT IS NOT DIABETIC.PT IS NEEDING ENCOURAGEMENT TO EAT AND DRINK. ALTHOUGH,PT VERB IS STARTING TO GET APPETITE BACK AND DESIRE TO DRINK FLUIDS. PT VOIDING CONCENTRATED URINE. IV ONLY AT [facility]. WILL ASK DAY RN TO FOLLOW UP WITH POSSIBLITY OF MAINLINE FLUIDS NEEDED.PT HAS OCC DRY COUGH. SOB WITH ANXIETY OR MOVEMENT IN BED. VERB ATARAX HELPFUL FOR ANXIETY,BUT PT STILL ANXIOUS ENOUGH TO REQUEST ANY EVENTS TO STOP TO ALLOW HER TO CALM/BREATHE.PT IS ALSO REQUESTING AND RECEIVING KENNEY 10 MG PO FOR PAIN PER ORDERS AND SLEEPS BETWEEN DOSES.PT HAS CONT BIOX AT BEDSIDE IN USE. CHEST TO R ACW INTACT TO WATER SEAL SCANT CLEAR LLIQ NOTED IN TUBE X1.
--- NOTE | 2021-05-10 10:22 | NUR ---
dr mendes by to see pt cxr to be ordered ok for pt to get oob with assist to [facility]
--- NOTE | 2021-05-10 11:52 | NUR ---
PT NOT WANTING TO EAT WILL DRINK SMALL AMTS ASKE PT IF SHE HAS AN ITEN THAT SOUNDS GOOD SAID MASHED POTATO WILL ORDER
--- NOTE | 2021-05-10 12:30 | NUR ---
rt talked with me re pt req to hold her neb tx he feels like she is anxious and feels like they are not working will not push her i will cont to monitor her and encourage her to use them for her copd hx pt stated she has not been using them at home also feels like they do not work
--- NOTE | 2021-05-10 15:50 | NUR ---
pt visited with family and stated she feels more anxiety after the visit still worried that her ct will fall out reassured pt earlier inc oxygen to 3 l nc biox dec to 83 % with movment in the bed pt stated she still feels sob with movement showed pt how to use the bed controls to inc bed degree vs sitting straight up on her own
--- NOTE | 2021-05-10 18:20 | NUR ---
meds given as sched pt encouraged to eat her magic cup
--- NOTE | 2021-05-10 22:29 | NUR ---
TRANSFER PT TRANSFERRED AT THIS TIME TO [facility] WITH ALL PERSONAL BELONGINGS.
== END 2021-05-10 22:40 | disposition short-term general hospital (02) | DRG 189 ==
LOC: ER 14:32 → ICUE 21:48 → ERHOLD 21:48 → ICUE 05-07 00:33 → SURS 05-09 21:15
PROVIDERS: Emergency Medicine; Internal Medicine; ADMIT Internal Medicine
PROC: 0W9930Z Drainage of Right Pleural Cavity with Drainage Device, Percutaneous Approach (ICD-10-PCS; principal; 2021-05-06)
DX: J96.21 Acute and chronic respiratory failure with hypoxia (principal); J44.1 Chronic obstructive pulmonary disease with (acute) exacerbation; J95.811 Postprocedural pneumothorax; Z20.822 Contact with and (suspected) exposure to COVID-19; I10 Essential (primary) hypertension; F41.9 Anxiety disorder, unspecified; E87.6 Hypokalemia; K21.9 Gastro-esophageal reflux disease without esophagitis; E03.9 Hypothyroidism, unspecified; Z87.891 Personal history of nicotine dependence; Z90.710 Acquired absence of both cervix and uterus; Z79.52 Long term (current) use of systemic steroids; Z79.899 Other long term (current) drug therapy
CPT/HCPCS: 32551; 36415; 36556; 71045; 71260; 80053; 82803; 82947; 83735; 83880; 84443; 84484; 85025; 85379; 93005; 93010; 94640; 94664; 94668; 94762; 96374-59; 96375-59; 96376-59; 99285-25; A9270; C1751; J0360; J0456; J0696; J1650; J2060; J2405; J2930; J3480; J7030; J7050; Q9967; U0004